=== PATIENT | male | born 1950 | race Two or more races ===

== ENCOUNTER 2022-05-21 14:43 | Outpatient (CLI) | payer MEDICARE, SELFPAY ==
[2022-05-21 19:09] LABS: Chloride* 104 mmol/L (96-114); Potassium* 4.3 mmol/L (3.6-5.1); Sodium* 142 mmol/L (135-149)
[2022-05-21 19:12] LABS: Blood Urea Nitrogen* 17 mg/dL (7-30); Carbon Dioxide* 28 mmol/L (20-32); Estimated Glomerular Filt Rate 81 ml/min
[2022-05-21 19:13] LABS: Calcium* 9.7 mg/dL (8.4-10.6); Glucose* 100 mg/dL (60-115)
== END 2022-05-21 14:44 | disposition home or self-care (01) ==
LOC: NFLDREF 14:44
PROVIDERS: PCP Family Medicine; Visit Provider Family Medicine
DX: Z01.818 Encounter for other preprocedural examination (principal)
CPT/HCPCS: 80048

== ENCOUNTER 2023-10-15 09:26 | Outpatient (CLI) | payer MEDICARE, SELFPAY ==
--- OUTSIDE RECORDS SUMMARY | 2023-10-15 09:29 | XMS_ITS | Clinical Summary ---
Author Organization [employer] Address [address], [place] [address] Care Team Providers Care Sander And Polisher Name Role Phone Delvis Altamirano MD Primary Care Provider [phone] Source Comments You are receiving this document as you are listed as the primary care provider,follow-up provider, or the patient has been referred to you for consultation.This is in compliance with the Medicare and[facility] E[facility] Incentive Program,which states Providers who transition their patient to another setting of careor provider of care or refers their patient to another provider of care shouldprovide summary care record for each transition of care or referral. [employer] [employer] Allergies No known active allergies Medications Medication Sig Dispensed Refills Start Date End Date Status lisinopril (ZESTRIL) 10 MG tablet Take 1 Tablet (10 mg) by mouth daily. Active Aspirin Buf,FfAwsy-LgNwuc-Ld O, 81 MG TABS Take by mouth. Active allopurinol (ZYLOPRIM) 100 MG tablet Take 2 Tablets by mouth daily. 180 Tablet 1 01/31/2021 Active predniSONE (DELTASONE) 20 MG tablet ONLY FOR A FLARE, TAKE 2 TABLETS ONE TIME DAILY FOR 5 DAYS, THEN 1 TABLET DAILY FOR 5 DAYS, THEN STOP- APPT. NEEDED FOR FURTHER REFILLS 30 Tablet 07/18/2021 Active LIPITOR 20 MG tablet Take 1 Tablet (20 mg) by mouth daily. 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 Pulse 63 05/24/2020 2:26 PM CHICKEN PICKER Temperature 36.4 ??C (97.5 ??F) 05/24/2020 2:26 PM CS T Respiratory Rate - - Oxygen Saturation - - Inhaled Oxygen Concentration - - Weight 89.4 kg (197 lb) 05/24/2020 2:26 PM CHICKEN PICKER Height - - Body Mass Index - - Plan of Treatment Upcoming Encounters Date Type Department Care Team (Late st Contact Info) Description 12/17/2023 8:20 AM CDT Appointment [place] [phone] [place] [address] [phone] Ligia Bhakta MD [address] [place] [id number] Health Maintenance Due Date Last Done Comments Colon Cancer Screening Plan Due 1950 Hep C Screening (Preventive Services) 1950 Medicare Welcome Visit 1950 Cholesterol 12/02/1986 Zoster/Shingles (1 of 2) 12/02/2001 Pneumococcal 65+ Yrs (1 - PCV) 12/02/2016 COVID-19 Vaccine ( season) 2022 05/21/2022, 02/22/2021, 06/23/2020, Additional history exists Influenza (Season Ended) 2023 02/21/2010 DTaP/Tdap/Td (3 - Tdap) 08/10/2031 08/09/2021, 05/26 HepA Aged Out No longer eligi ble based on patient's age to complete this topic HepB Aged Out No longer eligi ble based on patient's age to complete this topic Hib Aged Out No longer eligi ble based on patient's age to complete this topic IPV (Polio) Aged Out No longer eligi ble based on patient's age to complete this topic MCV4 Aged Out No longer eligi ble based on patient's age to complete this topic Care Teams Sander And Polisher Relationship Specialty Start Date End Date Delvis Altamirano MD [facility] [address] [place] [address] PCP - General Family Practice 05/18/20
== END 2023-10-15 09:27 | disposition home or self-care (01) ==
PROVIDERS: PCP Family Medicine; Visit Provider Family Medicine
DX: I10 Essential (primary) hypertension (principal); E78.00 Pure hypercholesterolemia, unspecified; Z13.0 Encounter for screening for diseases of the blood and blood-forming organs and certain disorders involving the immune mechanism
CPT/HCPCS: 80048; 80061

== ENCOUNTER 2023-11-18 11:38 | Inpatient (IN) | payer MEDICARE, SELFPAY ==
[2023-11-18] VITALS (23 sets, daily range): BP systolic 124–167; BP diastolic 83–96; PULSE 57–75; RESP 16–18; TEMP 36.2–36.4; O2SAT 96–100; BMI 25.7; BMI 26.4
--- NOTE | 2023-11-18 12:05 | CRLHL7_ITS ---
For Patients: As a result of the Century Cures Act, medical imaging exams and procedure reports are released immediately into your electronic medical record. You may view this report before your referring provider. If you have questions, please contact your health care provider. INDICATION: Chest pain. TECHNIQUE: Chest 2 views. COMPARISON: None. FINDINGS: Cardiovascular and mediastinum: Heart size is normal. Unremarkable mediastinum. Lungs and pleural spaces: Lungs are clear. No sign of infiltrate or mass. No sign of pleural effusion. No pneumothorax. Bones and soft tissues: No significant findings. IMPRESSION: No acute or significant findings. Dictated by Cierra Dunaway MD @ 11/18/2023 12:24:34 PM (Electronically Signed)
--- OUTSIDE RECORDS SUMMARY | 2023-11-18 12:12 | XMS_ITS | Clinical Summary ---
Author Organization [employer] Address [address], [place] [address] Care Team Providers Care Identity Management Consultant Name Role Phone Delvis Altamirano MD Primary Care Provider [phone] Source Comments You are receiving this document as you are listed as the primary care provider,follow-up provider, or the patient has been referred to you for consultation.This is in compliance with the Medicare and[facility] E[facility] Incentive Program,which states Providers who transition their patient to another setting of careor provider of care or refers their patient to another provider of care shouldprovide summary care record for each transition of care or referral. [employer] Allergies No known active allergies Medications Medication Sig Dispensed Refills Start Date End Date Status lisinopril (ZESTRIL) 10 MG tablet Take 1 Tablet (10 mg) by mouth daily. Active Aspirin Buf,CyIivm-CsEhea-Mj O, 81 MG TABS Take by mouth. [...] Comments Blood Pressure 160/93 05/24/2020 2:26 PM SURVEYING OR SPATIAL SCIENCE TECHNICIAN Pulse 63 05/24/2020 2:26 PM SURVEYING OR SPATIAL SCIENCE TECHNICIAN Temperature 36.4 ??C (97.5 ??F) 05/24/2020 2:26 PM CS T Respiratory Rate - - Oxygen Saturation - - Inhaled Oxygen Concentration - - Weight 89.4 kg (197 lb) 05/24/2020 2:26 PM SURVEYING OR SPATIAL SCIENCE TECHNICIAN Height - - Body Mass Index - - Plan of Treatment Upcoming Encounters Date Type Department Care Team (Late st Contact Info) Description 12/17/2023 8:20 AM CDT Appointment [place] [phone] [place] [address] [phone] Ligia Bhakta MD [address] [place] [phone] Health Maintenance Due Date Last Done Comments Colon Cancer Screening Plan Due 1950 Hep C Screening (Preventive Services) 1950 Medicare Welcome Visit 1950 Cholesterol 12/02/1986 Zoster/Shingles (1 of 2) 12/02/2001 Pneumococcal 65+ Yrs (1 - PCV) 12/02/2016 COVID-19 Vaccine ( season) 2022 05/21/2022, 02/22/2021, 06/23/2020, Additional history exists Influenza (#1) 2023 02/21/2010 DTaP/Tdap/Td (3 - Tdap) 08/10/2031 [...] age to complete this topic Care Teams Identity Management Consultant Relationship Specialty Start Date End Date Delvsi Altamirano MD [facility] [address] [place] [address] PCP - General Family Practice 05/18/20
--- NOTE | 2023-11-18 12:35 | ED_ITS ---
HPI - General Adult General Date Seen: 11/18/23 Chief complaint: Dizziness/Vertigo Stated complaint: chest tightness/SOB Time Seen by Provider: 11/18/23 11:48 Source: patient Mode of arrival: ambulatory Limitations: no limitations History of Present Illness HPI narrative: Patient is a 72-year-old male with history of gout presenting to the emergency department for lightheadedness, mild shortness of breath, chest pain that has been going on for the past 2 weeks. He initially noticed it while he was rashing a game. Symptoms seem to come and go and are typically there when he is exerting himself. Symptoms recur subside when he is at rest. He has no history of cardiac issues. Denies any history of blood clots. States he is currently feeling asymptomatic. Will have some lightheadedness if he stands up too fast the symptoms then seemed to quickly resolved. It was concerned because symptoms keep coming back whenever he does exert himself. Denies abdominal pain, nausea/vomiting, vision changes, dysuria, diarrhea, constipation, , weakness. Does have occasional headaches over the past couple weeks but is currently not having any headaches. States he feels like he is drinking plenty of fluids but does admit he has been outside a lot and dehydration could be part of his problem. No other concerns noted at this time. Related Data Home Medications ?Medication ?Instructions ?Recorded ?Confirmed aspirin 81 mg tablet,delayed 81 mg PO DAILY 01/02/22 11/18/23 release lisinopril 5 mg tablet 5 mg PO DAILY 11/18/23 11/18/23 Previous Rx's ?Medication ?Instructions ?Recorded allopurinol 300 mg tablet 300 mg PO DAILY #90 tabs 10/15/23 atorvastatin 20 mg tablet 20 mg PO QPM #90 tabs 10/15/23 Allergies Allergy/AdvReac Type Severity Reaction Status Date / Time No Known Allergies Allergy Unknown Verified 10/15/23 08:47 Review of Systems Status of ROS: Reports: 10 or more systems reviewed and unremarkable except as noted in History and below PFSH [facility] Medical History Rotator cuff injury ?S46.009A - Unspecified injury of muscle(s) and tendon(s) of the rotator cuff of unspecified shoulder, initial encounter (ICD-10) Surgical History S/P arthroscopy of shoulder ?Z98.890 - Other specified postprocedural states (ICD-10) Status post vasectomy (12/14/08) ?Z98.52 - Vasectomy status (ICD-10) History of oral surgery (12/14/08) ?Z98.890 - Other specified postprocedural states (ICD-10) History of arthroscopy of left shoulder ?Z98.890 - Other specified postprocedural states (ICD-10) Family History Other Brain cancer Social History Smoking Status: Former smoker Do you use any of these nicotine containing products: None How often do you have a drink containing alcohol: 4 or more times a week How many standard drinks containing alcohol do you have on a typical day: 1 or 2 AUDIT-C Alcohol total score: 4 Non-prescribed substance use: denies use Little interest or pleasure in doing things: not at all Feeling down, depressed, or hopeless: not at all Exam Narrative: Exam Narrative: Patient is a 72-year-old male presenting to emergency department for multiple complaints. Lightheadedness might be related to dehydration and fluids will be given. All his symptoms could also be from viral infection and COVID/flu/RSV ordered. D-dimer order to look for signs of a PE. Will also order CBC, BMP, troponin, magnesium, EKG. Chest x-ray ordered Const: Vital Signs, click to edit/add: Vital Signs - 24 hr 11/18/23 11:41 11/18/23 13:51 11/18/23 14:00 Temperature 97.6 F Pulse Rate 64 62 Pulse Rate [Pulse Oximeter] 75 Respiratory Rate 16 Blood Pressure Blood Pressure [Ri ght Upper Arm] 159/89 H Pulse Oximetry 96 96 99 Oxygen Delivery Me thod Room Air 11/18/23 14:02 11/18/23 14:24 11/18/23 14:31 Temperature Pulse Rate 63 60 57 L Pulse Rate [Pulse Oximeter] Respiratory Rate Blood Pressure 146/90 H 148/93 H Blood Pressure [Ri ght Upper Arm] Pulse Oximetry 98 97 98 Oxygen Delivery Me thod 11/18/23 15:07 Temperature Pulse Rate Pulse Rate [Pulse Oximeter] Respiratory Rate 18 Blood Pressure Blood Pressure [Ri ght Upper Arm] Pulse Oximetry Oxygen Delivery Me thod Course Vital Signs Vital signs: Initial Vital Signs Temperature 97.6 F 11/18/23 11:41 Temperature Source Temporal Artery Scan 11/18/23 11:41 Pulse Rate 75 11/18/23 11:41 Respiratory Rate 16 11/18/23 11:41 Blood Pressure 159/89 H 11/18/23 11:41 Blood Pressure Mean 112 H 11/18/23 11:41 Pulse Oximetry 96 11/18/23 11:41 Oxygen Delivery Method Room Air 11/18/23 11:41 Vital Signs Temperature 97.6 F 11/18/23 11:41 Pulse Rate 75 11/18/23 11:41 Respiratory Rate 16 11/18/23 11:41 Blood Pressure 159/89 H 11/18/23 11:41 Pulse Oximetry 96 11/18/23 11:41 Oxygen Delivery Method Room Air 11/18/23 11:41 Temperature 97.6 F 11/18/23 11:41 Pulse Rate 57 L 11/18/23 14:31 Respiratory Rate 18 11/18/23 15:07 Blood Pressure 148/93 H 11/18/23 14:31 Pulse Oximetry 98 11/18/23 14:31 Oxygen Delivery Method Room Air 11/18/23 11:41 Medications Administered Medications: Discontinued Medications Generic Name Dose Route Start Last Admin Trade Name Freq PRN Reason Stop Dose Admin Lactated Ringer's 1,000 mls @ 1,000 mls/hr 11/18/23 12:05 11/18/23 15:03 Lactated Ringers 1000 Ml IV 11/18/23 13:04 Infused .Q1H ONE Infusion Medical Decision Making MDM Narrative Medical decision making narrative: Patient is a 72-year-old male presenting to the emergency department for shortness of breath. He is asymptomatic at this time. Symptoms seemed only occur with activity. Differential includes coronary artery disease, pneumonia, pneumothorax, pulmonary embolism. Will do a D-dimer, chest x-ray, COVID/flu/RSV, EKG, troponin, CBC, magnesium, BMP. COVID/flu/RSV is negative. CBC and BMP shows no concerning abnormalities. D- dimer within normal limits in PE is unlikely. Reviewing the EKG I see no signs of any concerning abnormalities. Point of care troponin was elevated at 0.13 so a troponin I was ordered. This was elevated at 0.16. Repeat troponin was done and was elevated at 0.18. He continues to be asymptomatic at this time with normal vital signs. Repeat EKG showed no concerning findings. We will page [facility]. I spoke to their on-call provider who recommended starting heparin but states we can keep him in our hospital and to order a stress echo tomorrow. I wrote out this order using our stress echo order sheet. I spoke to Dr. Salazar who accepted for admission Lab Data Labs: Lab Results 11/18/23 11/18/23 11/18/23 Range/Units 12:31 14:23 14:35 WBC 6.40 (4.50-11.00) K/uL RBC 4.65 (4.30-5.90) m/uL Hgb 14.4 (13.5-17.5) gm/dL Hct 43.9 (37.0-53.0) % MCV 94 (80-100) fL MCH 31 (26-34) pg MCHC 33 (32-36) gm/dL RDW Coeff of Cassandra 13.8 (11.5-15.5) % Plt Count 214 (140-440) K/uL Neut % (Auto) 67.7 (42.0-72.0) % Lymph % (Auto) 22.8 (20-44) % [place] % (Auto) 7.2 (0.0-11.0) % Eos % (Auto) 1.6 (0.0-7.0) % Baso % (Auto) 0.5 (0.0-3.0) % Neut # (Auto) 4.34 (1.7-7.0) K/uL Lymph # (Auto) 1.46 (0.90-2.90) K/uL [place] # (Auto) 0.50 (0.00-0.90) K/UL Eos # (Auto) 0.10 (0.00-0.50) K/uL Baso # (Auto) 0.03 (0.00-0.30) K/uL Abs Immat Gran (auto) 0.01 (0.00-0.30) K/uL Imm/Tot Granulo (auto) 0.2 % D-Dimer Quant (PE/DVT) 0.31 (0.00-0.50) ug/ml Sodium 134 L (135-149) mmol/L Potassium 4.0 (3.6-5.1) mmol/L Chloride 102 (96-114) mmol/L Carbon Dioxide 23 (20-32) mmol/L Anion Gap 9 (7-15) mEq/L BUN 18 (7-30) mg/dL Creatinine 1.0 (0.5-1.5) mg/dL Estimated Creat Clear 69.96 Estimated GFR 80 ml/min Glucose 97 (60-115) mg/dL Calcium 9.2 (8.4-10.6) mg/dL Magnesium 1.9 (1.5-2.6) mg/dL Troponin I 0.16 H* 0.18 H* (0.01-0.04) ng/mL SARS-CoV-2 (PCR) Negative SARS-CoV-2 (Negative) Influenza Type A (PCR) Negative PCR FLU A (Negative) Influenza Type B (PCR) Negative PCR FLU B (Negative) RSV (PCR) Negative PCR RSV (Negative) POC Troponin I 0.13 H 0.14 H (0.01-0.04) ng/ml Imaging Data Chest x-ray: Attestation: I have reviewed the pertinent imaging results. Radiologist's impression: No acute or significant findings. Dictated by Cierra Dunaway MD @ 11/18/2023 12:24:34 PM ECG Data Attestation: I personally reviewed and interpreted this ECG as follows: Prior ECG tracings: not available for review Interpretation: EKG at 11:58 normal sinus rhythm with a rate of 68 beats per minute, normal intervals, normal axis, no ST or T-wave abnormalities. Repeat EKG at 14:01 sinus bradycardia the rate 56 beats per minute, normal intervals, normal axis, no ST or T-wave abnormalities Discharge Plan Discharge Clinical Impression: Angina pectoris Patient Disposition: Admitted As Observation Condition: Stable
[2023-11-18 12:42] LABS: Basophils Absolute Auto 0.03 K/uL (0.00-0.30); Basophils Percent Auto 0.5 % (0.0-3.0); Eosinophils Percent Auto 1.6 % (0.0-7.0); Hematocrit 43.9 % (37.0-53.0); Hemoglobin* 14.4 gm/dL (13.5-17.5); Immature Granulocytes Abs Auto 0.01 K/uL (0.00-0.30); Immature Granulocytes Pct Auto 0.2 %; Lymphocytes Absolute Auto 1.46 K/uL (0.90-2.90); Lymphocytes Percent Auto 22.8 % (20-44); Mean Corpuscular HGB Conc 33 gm/dL (32-36); Mean Corpuscular Hemoglobin 31 pg (26-34); Mean Corpuscular Volume 94 fL (80-100); Monocytes Percent Auto 7.2 % (0.0-11.0); Neutrophils Absolute Auto 4.34 K/uL (1.7-7.0); Neutrophils Percent Auto 67.7 % (42.0-72.0); Platelet Count* 214 K/uL (140-440); RDW Coefficient of Variation % 13.8 % (11.5-15.5); Red Blood Count 4.65 m/uL (4.30-5.90)
[2023-11-18 12:50] LABS: Slide Review Reflex No
[2023-11-18 12:55] LABS: Chloride* 102 mmol/L (96-114); Sodium* 134 mmol/L (135-149)
[2023-11-18 12:58] LABS: Anion Gap 9 mEq/L (7-15); Carbon Dioxide* 23 mmol/L (20-32); Est. Creatinine Clearance* 69.96; Estimated Glomerular Filt Rate 80 ml/min
[2023-11-18 12:59] LABS: Blood Urea Nitrogen* 18 mg/dL (7-30); Calcium* 9.2 mg/dL (8.4-10.6); Glucose* 97 mg/dL (60-115); Magnesium* 1.9 mg/dL (1.5-2.6)
[2023-11-18] MEDS: LACTATED RINGERS 1000 ML 1,000 ML IV (13:01)
[2023-11-18 13:20] LABS: PCR FLU A Negative PCR FLU A (Negative); PCR FLU B Negative PCR FLU B (Negative); PCR RSV Negative PCR RSV (Negative); SARS PCR* Negative SARS-CoV-2 (Negative)
[2023-11-18 13:56] LABS: Troponin I* 0.16 ng/mL (0.01-0.04)
[2023-11-18 14:00] LABS: D Dimer Quantitative* 0.31 ug/ml (0.00-0.50)
[2023-11-18 14:10] LABS: Troponin, Point-of-Care* 0.13 ng/ml (0.01-0.04)
[2023-11-18 14:37] LABS: Troponin, Point-of-Care* 0.14 ng/ml (0.01-0.04)
[2023-11-18 15:12] LABS: Troponin I* 0.18 ng/mL (0.01-0.04)
[2023-11-18] MEDS: HEPARIN 5,000 UNIT/0.5 ML INJ 4000 UNIT IVP (16:09)
[2023-11-18] MEDS: HEPARIN 25,000 UNIT/500 ML BAG 19 UNIT IV (16:12)
[2023-11-18 16:26] LABS: INR 0.94 (0.91-1.10); Prothrombin Time 13.1 Seconds
--- NOTE | 2023-11-18 16:32 | PM.IMHP1 ---
Hospitalist- H&P: HPI History of Present Illness Date Seen: 11/18/23 Chief complaint: chest tightness/SOB Narrative: Oleg Waterman is a 72 year old male with hypertension and hyperlipidemia admitted through the emergency department with a 2 week history of exertional dyspnea and chest tightness. 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 He noted that this got better when he rested. In the past 2 weeks he has not done similar vigorous activity but does note that he has dyspnea with normal walking. No previous history of heart disease. No previous episodes of exertional dyspnea or chest tightness prior to 2 weeks ago. He does have hyperlipidemia for which he takes atorvastatin 20 mg and hypertension for which he takes lisinopril 5 mg he is also on aspirin 81 mg daily chronically. He does not smoke. His mother and brother both had heart disease. He has not had recent illness with cough, cold, fever. No previous personal family history of DVT or VTE. No history of bleeding disorder. Review of Systems Narrative: Reports feeling well other than his exertional symptoms outlined above [facility] Medical History (Updated 11/18/23 @ 16:43 by Jai Salazar MD) NSTEMI (non-ST elevated myocardial infarction) ?I21.4 - Non-ST elevation (NSTEMI) myocardial infarction (ICD-10) Rotator cuff injury ?S46.009A - Unspecified injury of muscle(s) and tendon(s) of the rotator cuff of unspecified shoulder, initial encounter (ICD-10) Surgical History S/P arthroscopy of shoulder ?Z98.890 - Other specified postprocedural states (ICD-10) Status post vasectomy (12/14/08) ?Z98.52 - Vasectomy status (ICD-10) History of oral surgery (12/14/08) ?Z98.890 - Other specified postprocedural states (ICD-10) History of arthroscopy of left shoulder ?Z98.890 - Other specified postprocedural states (ICD-10) Family History (Updated 11/18/23 @ 16:37 by Jai Salazar MD) Brother Coronary artery disease Other Brain cancer Heart disease Social History (Updated 11/18/23 @ 16:38 by Jai Salazar MD) Narrative: 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 Three grown children. 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 Code status is full. Former smoker. Typically drinks 2 drinks per day Smoking Status: Former smoker Do you use any of these nicotine containing products: None How often do you have a drink containing alcohol: 4 or more times a week How many standard drinks containing alcohol do you have on a typical day: 1 or 2 AUDIT-C Alcohol total score: 4 Non-prescribed substance use: denies use Little interest or pleasure in doing things: not at all Feeling down, depressed, or hopeless: not at all Meds Home Medications and Allergies Home Medications ?Medication ?Instructions ?Recorded ?Confirmed ?Type aspirin 81 mg tablet,delayed 81 mg PO DAILY 01/02/22 11/18/23 History release lisinopril 5 mg tablet 5 mg PO DAILY 11/18/23 11/18/23 History Allergies Allergy/AdvReac Type Severity Reaction Status Date / Time No Known Allergies Allergy Unknown Verified 10/15/23 08:47 Exam Narrative: Exam Narrative: He is alert and appears in no distress. He gives his own history. Eyes normal. Oropharynx normal. Neck is supple without mass or adenopathy. No jugular venous distension. Respirations are clear to auscultation. Breathing is unlabored. Cardiovascular: S1, S2, regular rate and rhythm. No murmur gallop or rub. Abdomen: Bowel sounds active. Abdomen is soft without tenderness or mass. Extremities without edema. Good peripheral pulses. No rash Const: Vital Signs, click to edit/add: Vital Signs - 24 hr 11/18/23 11:41 11/18/23 13:51 11/18/23 14:00 Temperature 97.6 F Pulse Rate 64 62 Pulse Rate [Pulse Oximeter] 75 Respiratory Rate 16 Blood Pressure Blood Pressure [Ri ght Upper Arm] 159/89 H Pulse Oximetry 96 96 99 Oxygen Delivery Me thod Room Air 11/18/23 14:02 11/18/23 14:24 11/18/23 14:31 Temperature Pulse Rate 63 60 57 L Pulse Rate [Pulse Oximeter] Respiratory Rate Blood Pressure 146/90 H 148/93 H Blood Pressure [Ri ght Upper Arm] Pulse Oximetry 98 97 98 Oxygen Delivery Me thod 11/18/23 14:34 11/18/23 14:45 11/18/23 15:00 Temperature Pulse Rate 60 57 L 61 Pulse Rate [Pulse Oximeter] Respiratory Rate Blood Pressure Blood Pressure [Ri ght Upper Arm] Pulse Oximetry 99 98 99 Oxygen Delivery Me thod 11/18/23 15:02 11/18/23 15:07 11/18/23 15:15 Temperature Pulse Rate 61 62 Pulse Rate [Pulse Oximeter] Respiratory Rate 18 Blood Pressure 148/89 H Blood Pressure [Ri ght Upper Arm] Pulse Oximetry 97 97 Oxygen Delivery Ky thod 11/18/23 15:30 11/18/23 15:31 11/18/23 15:45 Temperature Pulse Rate 59 L 57 L 63 Pulse Rate [Pulse Oximeter] Respiratory Rate Blood Pressure 157/89 H Blood Pressure [Ri ght Upper Arm] Pulse Oximetry 100 100 99 Oxygen Delivery Ky thod 11/18/23 16:00 11/18/23 16:02 11/18/23 16:15 Temperature Pulse Rate 62 61 63 Pulse Rate [Pulse Oximeter] Respiratory Rate Blood Pressure 164/94 H Blood Pressure [Ri ght Upper Arm] Pulse Oximetry 99 99 99 Oxygen Delivery Me thod Documenting provider has reviewed patient's vital signs: yes Hospitalist - H&P: Result Labs Labs: Short CBC 11/18/23 Range/Units 12:31 WBC 6.40 (4.50-11.00) K/uL Hgb 14.4 (13.5-17.5) gm/dL Hct 43.9 (37.0-53.0) % Plt Count 214 (140-440) K/uL BMP 11/18/23 12:31 Sodium 134 L Potassium 4.0 Chloride 102 Carbon Dioxide 23 BUN 18 Creatinine 1.0 Glucose 97 Calcium 9.2 Cardiac Enzymes 11/18/23 11/18/23 Range/Units 12:31 14:35 Troponin I 0.16 H* 0.18 H* (0.01-0.04) ng/mL ECG Attestation: I personally reviewed and interpreted this ECG as follows: (Normal electrocardiogram: Normal sinus rhythm of 68. no ST-T changes.) ECG interpretation date: 11/18/23 Imaging Chest x-ray: Attestation: I have reviewed the pertinent imaging results. (Normal chest x-ray) Assessment and Plan Assessment and plan (1) NSTEMI (non-ST elevated myocardial infarction): Problem comment: Exertional dyspnea and chest heaviness associated with troponin elevation. Status: Acute (2) Angina pectoris: Problem comment: Fairly typical presentation of angina Status: Acute (3) Hypertension: Status: Acute (4) Hyperlipidemia: Problem comment: 10/15/2019 for lipid profile: Total cholesterol 219, triglycerides 253, LDL 107, HDL 61 Status: Acute Plan 72-year-old male with no previous history of coronary disease presents with a relatively typical history of angina for the last 2 weeks but also associated with elevated troponins indicating non STEMI. Emergency room physician spoke with Cardiology. They recommended evaluation in our hospital with cardiac monitoring, heparin and stress testing. Transfer for coronary angiogram pending clinical course. Total Time Spent Total Time Spent: Total time spent today is 60 minutes in evaluation and management
[2023-11-18 16:36] LABS: Partial Thromboplastin Time* 28 Seconds (23-33)
--- NOTE | 2023-11-18 19:29 | PC.NURSE ---
Pt arrived to floor for ED at 1630. Pt alert and oriented. Pt had no complaints of pain. Pt up independently in room. Pt started on Heparin drip in ED next PTT draw at 2200. Pt has stress test tomorrow at 1600- no caffeine for 24 hours and no beta blockers. Pt lives at home with in [place].
[2023-11-18] MEDS: ATORVASTATIN 10 MG TABLET 20 MG PO (20:42)
[2023-11-18 23:12] LABS: Partial Thromboplastin Time* 61 Seconds (23-33)
[2023-11-19 04:16] LABS: Basophils Absolute Auto 0.05 K/uL (0.00-0.30); Basophils Percent Auto 0.7 % (0.0-3.0); Eosinophils Absolute Auto 0.26 K/uL (0.00-0.50); Eosinophils Percent Auto 3.6 % (0.0-7.0); Hematocrit 43.3 % (37.0-53.0); Hemoglobin* 14.3 gm/dL (13.5-17.5); Immature Granulocytes Abs Auto 0.01 K/uL (0.00-0.30); Immature Granulocytes Pct Auto 0.1 %; Lymphocytes Absolute Auto 2.28 K/uL (0.90-2.90); Lymphocytes Percent Auto 31.8 % (20-44); Mean Corpuscular HGB Conc 33 gm/dL (32-36); Mean Corpuscular Hemoglobin 31 pg (26-34); Mean Corpuscular Volume 93 fL (80-100); Monocytes Percent Auto 7.1 % (0.0-11.0); Neutrophils Absolute Auto 4.07 K/uL (1.7-7.0); Neutrophils Percent Auto 56.7 % (42.0-72.0); Platelet Count* 210 K/uL (140-440); RDW Coefficient of Variation % 13.8 % (11.5-15.5); Red Blood Count 4.64 m/uL (4.30-5.90); White Blood Count* 7.18 K/uL (4.50-11.00)
[2023-11-19 04:17] LABS: Slide Review Reflex No
[2023-11-19 04:20] VITALS: BP 132/88; PULSE 71; RESP 16; TEMP 36.2; O2SAT 97
[2023-11-19 04:33] LABS: Partial Thromboplastin Time* 56 Seconds (23-33)
[2023-11-19 04:35] LABS: INR 1.01 (0.91-1.10); Prothrombin Time 13.9 Seconds
[2023-11-19 04:45] LABS: Troponin I* 0.12 ng/mL (0.01-0.04)
--- NOTE | 2023-11-19 06:49 | PC.NURSE ---
Pt is alert and oriented x3. Afebrile. Pt denies pain, chest pain, SOB and N/V. Pt is up ad kelly in room, voiding and tolerating regular diet. Heparin rate?at 950 unit/hr at 19 mls/hr, no changes made during shift [id number] per protocol. Pt's troponin was 0.12 ng/ml treading downward from 0.18 ng/ml yesterday (11/18/23) afternoon, Shavon PHAN called updated Rafal SAENZ, no new orders, continuing plan of care. ?
[2023-11-19 07:00] VITALS: BP 127/84; PULSE 60; PULSE 86; RESP 20; TEMP 36.3; O2SAT 97
[2023-11-19] MEDS: lisinopriL 5 MG TABLET PO (08:31)
[2023-11-19] MEDS: ASPIRIN 81 MG TABLET EC PO (08:31)
[2023-11-19] MEDS: SODIUM CHLORIDE 0.9 % (FLUSH) 10 ML SYRINGE 5 ML IVF ×2 (08:31→21:34)
[2023-11-19] MEDS: allopurinoL 300 MG TABLET PO (08:31)
[2023-11-19 10:28] VITALS: BP 114/81; PULSE 91; RESP 20; O2SAT 97
[2023-11-19 10:31] LABS: Partial Thromboplastin Time* 47 Seconds (23-33)
--- NOTE | 2023-11-19 13:23 | PC.NURSE ---
End of Shift Note: Patient has had an uneventful day so far this shift. He has been up and ambulated around and did not develop any chest pain or shortness of breath. Has been up independently in his room. Currently awaiting a stress echo test. Will continue to monitor until next shift arrives.
--- NOTE | 2023-11-19 14:56 | P.IMPN_ITS ---
Progress Note: A&P Assessment and plan (1) NSTEMI (non-ST elevated myocardial infarction): Problem details: Exertional dyspnea and chest heaviness associated with troponin elevation. Status: Acute (2) Angina pectoris: Problem details: Fairly typical presentation of angina Status: Acute (3) Hypertension: Status: Chronic (4) Hyperlipidemia: Problem details: 10/15/2019 for lipid profile: Total cholesterol 219, triglycerides 253, LDL 107, HDL 61 Status: Chronic Plan - On cardiac monitoring, IV heparin. Stress test scheduled for this afternoon at 4pm. Subjective Time Seen by Provider: 08:00 Date Seen: 11/19/23 Interval history: Avelino feels well today. Denies CP or SOB. He had questions about plan. Ambulated this am without cardiac symptoms. Exam Narrative: Exam Narrative: General: No acute distress. Awake, alert, oriented x3. No pallor. No jaundice. Cardiovascular: Regular rate and rhythm. No murmurs, gallops, or rubs. Respiratory: Clear to auscultation bilaterally. No wheezes or crackles. Extremities: No pedal edema. Const: Vital Signs, click to edit/add: Vital Signs - 24 hr 11/18/23 15:00 11/18/23 15:02 11/18/23 15:07 Temperature Pulse Rate 61 61 Pulse Rate [Pulse Oximeter] Respiratory Rate 18 Blood Pressure 148/89 H Blood Pressure [Le ft Arm] Blood Pressure [Ri ght Arm] Pulse Oximetry 99 97 [facility] 11/18/23 15:15 11/18/23 15:30 11/18/23 15:31 Temperature Pulse Rate 62 59 L 57 L Pulse Rate [Pulse Oximeter] Respiratory Rate Blood Pressure 157/89 H Blood Pressure [Le ft Arm] Blood Pressure [Ri ght Arm] Pulse Oximetry 97 100 100 Oxygen Delivery Sc thod 11/18/23 15:45 11/18/23 16:00 11/18/23 16:02 Temperature Pulse Rate 63 62 61 Pulse Rate [Pulse Oximeter] Respiratory Rate Blood Pressure 164/94 H Blood Pressure [Le ft Arm] Blood Pressure [Ri ght Arm] Pulse Oximetry 99 99 99 [facility] 11/18/23 16:15 11/18/23 16:30 11/18/23 16:52 Temperature 97.2 F L Pulse Rate 63 64 Pulse Rate [Pulse Oximeter] 61 Respiratory Rate 18 Blood Pressure Blood Pressure [Le ft Arm] Blood Pressure [Ri ght Arm] 167/93 H Pulse Oximetry 99 98 Oxygen Delivery Me thod Room Air 11/18/23 17:22 11/18/23 19:00 11/18/23 23:37 Temperature 97.4 F L 97.3 F L Pulse Rate Pulse Rate [Pulse Oximeter] 65 Respiratory Rate 18 16 Blood Pressure Blood Pressure [Le ft Arm] Blood Pressure [Ri ght Arm] 158/83 H 124/96 H Pulse Oximetry 98 96 96 Oxygen Delivery Me thod Room Air Room Air 11/18/23 23:37 11/19/23 04:20 11/19/23 07:00 Temperature 97.2 F L 97.4 F L Pulse Rate 58 L Pulse Rate [Pulse Oximeter] 71 60 Respiratory Rate 16 20 Blood Pressure Blood Pressure [Le ft Arm] 127/84 Blood Pressure [Ri ght Arm] 132/88 Pulse Oximetry 97 97 Oxygen Delivery Sc thod Room Air Room Air 11/19/23 07:00 11/19/23 07:00 11/19/23 10:28 Temperature Pulse Rate 86 Pulse Rate [Pulse Oximeter] 60 91 Respiratory Rate 20 20 Blood Pressure Blood Pressure [Le ft Arm] Blood Pressure [Ri ght Arm] 114/81 Pulse Oximetry 97 Oxygen Delivery Sc thod Room Air Labs Labs: Laboratory Results - last 24 hr 11/18/23 11/18/23 11/18/23 14:35 16:15 22:34 WBC RBC Hgb Hct MCV MCH MCHC RDW Coeff of Cassandra Plt Count Neut % (Auto) Lymph % (Auto) Hunt % (Auto) Eos % (Auto) Baso % (Auto) Neut # (Auto) Lymph # (Auto) Hunt # (Auto) Eos # (Auto) Baso # (Auto) Abs Immat Gran (auto) Imm/Tot Granulo (auto) INR 0.94 APTT 28 61 H Troponin I 0.18 H* 11/19/23 11/19/23 04:10 10:07 WBC 7.18 RBC 4.64 Hgb 14.3 Hct 43.3 MCV 93 MCH 31 MCHC 33 RDW Coeff of Cassandra 13.8 Plt Count 210 Neut % (Auto) 56.7 Lymph % (Auto) 31.8 Hunt % (Auto) 7.1 Eos % (Auto) 3.6 Baso % (Auto) 0.7 Neut # (Auto) 4.07 Lymph # (Auto) 2.28 Hunt # (Auto) 0.50 Eos # (Auto) 0.26 Baso # (Auto) 0.05 Abs Immat Gran (auto) 0.01 Imm/Tot Granulo (auto) 0.1 INR 1.01 APTT 56 H 47 H Troponin I 0.12 H*
[2023-11-19 15:00] VITALS: BP 128/84; PULSE 77; RESP 18; RESP 20; TEMP 36.6; O2SAT 98
--- NOTE | 2023-11-19 16:37 | W.PM.STED ---
Stress Test Note Date Date of test: 11/19/23 Providers Referring provider: Jai Salazar Primary care provider: Mateus Altamirano Stress test physician: Leodan Fonseca Stress Test Note Stress test ordered: Stress Echo Indication for test: chest pain, elevated troponin Results discussion: Patient is a very nice 72-year-old gentleman who was admitted yesterday for elevated troponins, his troponins of actually decreased since he has been admitted. He is currently pain-free, and has been since admission. His history is over the past couple weeks his episodes this pain with exercise and lessening exertion. Informed consent is obtained after risks benefits side effects a test, pretest EKG shows a ventricular rate of 77 his rhythm is sinus, blood pressure 144 on 88. No acute ST wave changes are noted. During this test he exercised for a total of 6 minutes 30 seconds, achieved a metabolic equivalent of 7.7 Mets with a maximum heart rate of 122 which is 96% of the maximum, his maximum blood pressure is 168/102. He developed chest pain at approximately the 6 minute time frame. That resolved during recovery. He described as pressure sensation. View of his tracing shows some ST wave depression noted inferiorly laterally. This improved during recovery. Preliminary echo images reviewed with the tech show lateral wall hypokinesis. Impression: Positive stress test both objectively and subjectively described above. Follow up suggested: Above information was relayed to inpatient hospital team, Dr. Salazar. Patient was pain-free when brought back to medical surgery unit.
--- NOTE | 2023-11-19 17:03 | PM.DS1 ---
DS: Providers Provider Date Seen: 11/19/23 Date of admission: 11/18/23 16:28 Primary care physician: Mateus Altamirano MD Admitting Clinician: Jai Salazar MD Attending Physician on discharge: Jai Salazar MD Date of Discharge: 11/19/23 DS: Diagnosis Discharge Diagnosis (1) NSTEMI (non-ST elevated myocardial infarction): Status: Acute Problem details: Exertional dyspnea and chest heaviness associated with troponin elevation. (2) Angina pectoris: Status: Acute Problem details: Fairly typical presentation of angina (3) Hypertension: Status: Chronic (4) Hyperlipidemia: Status: Chronic Problem details: 10/15/2019 for lipid profile: Total cholesterol 219, triglycerides 253, LDL 107, HDL 61 DS: Summary Hospital Course Hospital Course: 72-year-old male with no previous cardiac history admitted to the hospital with a 2 week history of exertional chest pain and dyspnea. 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 He also had unusual exertional dyspnea. When he would rest his symptoms would resolve. Since then he has not done any more running but he notes with his normal walking he feels unusual dyspnea. He he was advised to come to the emergency room where he was found to have elevated but stable troponins and no EKG changes. He is admitted the hospital overnight on heparin and remained asymptomatic. This afternoon he underwent stress echo testing. At about 6-1/2 minutes he developed chest pain. Preliminary report from the echocardiogram is positive for ischemic changes. I discussed plan of care with the patient. He is requesting invasive evaluation and treatment with coronary angiogram. I spoke with Cardiology at [facility] and he is accepted there for ongoing cardiac care. Time Spent with Patient Time attestation: Total time spent providing and/or coordinating discharge services: Time spent: Greater than 30 minutes Exam Narrative: Exam Narrative: Const: Vital Signs, click to edit/add: Vital Signs - 24 hr 11/18/23 17:22 11/18/23 19:00 11/18/23 23:37 Temperature 97.4 F L 97.3 F L Pulse Rate Pulse Rate [Pulse Oximeter] 65 Respiratory Rate 18 16 Blood Pressure [Le ft Arm] Blood Pressure [Ri ght Arm] 158/83 H 124/96 H Pulse Oximetry 98 96 96 Oxygen Delivery Me thod Room Air Room Air 11/18/23 23:37 11/19/23 04:20 11/19/23 07:00 Temperature 97.2 F L 97.4 F L Pulse Rate 58 L Pulse Rate [Pulse Oximeter] 71 60 Respiratory Rate 16 20 Blood Pressure [Le ft Arm] 127/84 Blood Pressure [Ri ght Arm] 132/88 Pulse Oximetry 97 97 Oxygen Delivery Me thod Room Air Room Air 11/19/23 07:00 11/19/23 07:00 11/19/23 10:28 Temperature Pulse Rate 86 Pulse Rate [Pulse Oximeter] 60 91 Respiratory Rate 20 20 Blood Pressure [Le ft Arm] Blood Pressure [Ri ght Arm] 114/81 Pulse Oximetry 97 Oxygen Delivery Me thod Room Air 11/19/23 15:00 11/19/23 15:00 Temperature 97.8 F Pulse Rate Pulse Rate [Pulse Oximeter] 77 77 Respiratory Rate 20 18 Blood Pressure [Le ft Arm] 128/84 Blood Pressure [Ri ght Arm] Pulse Oximetry 98 Oxygen Delivery Me thod Room Air DS: Data Data Completed and Pending Labs on day of discharge: Labs from last 24 hours 11/19/23 11/19/23 11/18/23 10:07 04:10 22:34 WBC 7.18 RBC 4.64 Hgb 14.3 Hct 43.3 MCV 93 MCH 31 MCHC 33 RDW Coeff of Cassandra 13.8 Plt Count 210 Neut % (Auto) 56.7 Lymph % (Auto) 31.8 [place] % (Auto) 7.1 Eos % (Auto) 3.6 Baso % (Auto) 0.7 Neut # (Auto) 4.07 Lymph # (Auto) 2.28 [place] # (Auto) 0.50 Eos # (Auto) 0.26 Baso # (Auto) 0.05 Abs Immat Gran (auto) 0.01 Imm/Tot Granulo (auto) 0.1 INR 1.01 APTT 47 H 56 H 61 H Troponin I 0.12 H* 11/18/23 16:15 WBC RBC Hgb Hct MCV MCH MCHC RDW Coeff of Cassandra Plt Count Neut % (Auto) Lymph % (Auto) [place] % (Auto) Eos % (Auto) Baso % (Auto) Neut # (Auto) Lymph # (Auto) [place] # (Auto) Eos # (Auto) Baso # (Auto) Abs Immat Gran (auto) Imm/Tot Granulo (auto) INR 0.94 APTT 28 Troponin I Discharge Plan Discharge Disposition: [facility] Date of Admission: 11/18/23 16:28 Attending Physician on Admission: Jai Salazar Attending Provider on Discharge: Jai Salazar Primary Care Provider: Mateus Altamirano Condition: Stable Discharge Medications: No Action aspirin 81 mg tablet,delayed release (DR/EC) 81 mg PO DAILY allopurinol 300 mg tablet 300 mg PO DAILY Qty: 90 3RF atorvastatin 20 mg tablet 20 mg PO QPM Qty: 90 3RF lisinopril 5 mg tablet 5 mg PO DAILY Discharge Orders: Transfer of Care to Other Hospital (ORDER); Ordered 11/19/23 Ordered By: Jai Salazar Follow Up Appointments: Mateus Altamirano MD [Primary Care Provider] - Hospital Course: 72-year-old male with no previous cardiac history admitted to the hospital with a 2 week history of exertional chest pain and dyspnea. 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 He also had unusual exertional dyspnea. When he would rest his symptoms would resolve. Since then he has not done any more running but he notes with his normal walking he feels unusual dyspnea. He he was advised to come to the emergency room where he was found to have elevated but stable troponins and no EKG changes. He is admitted the hospital overnight on heparin and remained asymptomatic. This afternoon he underwent stress echo testing. At about 6-1/2 minutes he developed chest pain. Preliminary report from the echocardiogram is positive for ischemic changes. I discussed plan of care with the patient. He is requesting invasive evaluation and treatment with coronary angiogram. I spoke with Cardiology at [facility] and he is accepted there for ongoing cardiac care.
[2023-11-19] MEDS: HEPARIN 25,000 UNIT/500 ML BAG 19 UNIT IV ×2 (17:13→21:26)
--- NOTE | 2023-11-19 18:36 | PC.NURSE ---
contacted [facility] access via phone. Verified with access center a 4-8 hour wait on pt transfer to [facility].
[2023-11-19 19:00] VITALS: BP 134/87; PULSE 68; RESP 18; TEMP 36.1; O2SAT 97
[2023-11-19] MEDS: ATORVASTATIN 10 MG TABLET 20 MG PO (21:33)
== END 2023-11-19 22:49 | disposition short-term general hospital (02) | DRG 282 ==
LOC: ED 15:55 → MEDSURG 16:28
PROVIDERS: Admitting Provider Family Medicine; Emergency Provider Student in an Organized Health Care Education/Training Program; PCP Family Medicine; Visit Provider Family Medicine
DX: I21.4 Non-ST elevation (NSTEMI) myocardial infarction (principal); I20.9 Angina pectoris, unspecified; I10 Essential (primary) hypertension; E78.5 Hyperlipidemia, unspecified
CPT/HCPCS: 36415; 71046; 80048; 83735; 84484; 85025; 85027; 85379; 85610; 85730; 87631; 93005; 93016; 93325; 93351; 99284; 99285; 99291; A9270; J1644; J7120

== ENCOUNTER 2023-11-19 22:38 | Outpatient (CLI) | payer MEDICARE, SELFPAY ==
--- OUTSIDE RECORDS SUMMARY | 2023-11-23 09:32 | XMS_ITS | Clinical Summary ---
Author Organization [employer] Address [address], [place] [address] Care Team Providers Care Lightning Protection Installer Name Role Phone Delvis Altamirano MD Primary Care Provider Source Comments You are receiving this document as you are listed as the primary care provider,follow-up provider, or the patient has been referred to you for consultation.This is in compliance with the Medicare and[facility] EHR Incentive Program,which states Providers who transition their patient to another setting of careor provider of care or refers their patient to another provider of care shouldprovide summary care record for each transition of care or referral. [employer] Allergies No known active allergies Medications Medication Sig Dispensed Refills Start Date End Date Status lisinopril (ZESTRIL) 10 MG tablet Take 1 Tablet (10 mg) by mouth daily. Active Aspirin Buf,[id number] O, 81 MG TABS Take by mouth. [...] Comments Blood Pressure 160/93 05/24/2020 2:26 PM DELIMER Pulse 63 05/24/2020 2:26 PM DELIMER Temperature 36.4 ??C (97.5 ??F) 05/24/2020 2:26 PM CS T Respiratory Rate - - Oxygen Saturation - - Inhaled Oxygen Concentration - - Weight 89.4 kg (197 lb) 05/24/2020 2:26 PM DELIMER Height - - Body Mass Index - - Plan of Treatment Upcoming Encounters Date Type Department Care Team (Late st Contact Info) Description 12/17/2023 8:20 AM CDT Appointment [place] [id number] [address] [place] [address] [phone] Ligia Bhakta MD [address] [place] [id number] Health Maintenance Due Date Last Done [...] age to complete this topic Care Teams Lightning Protection Installer Relationship Specialty Start Date End Date Delvis Altamirano MD [facility] [address] [place] [address] PCP - General Family Practice 05/18/20
== END 2023-11-19 22:39 | disposition home or self-care (01) ==
LOC: AMB 11-23 09:30
PROVIDERS: PCP Family Medicine; Visit Provider Family Medicine
DX: I21.4 Non-ST elevation (NSTEMI) myocardial infarction (principal)
CPT/HCPCS: A0425; A0434

== ENCOUNTER 2024-03-13 10:46 | Outpatient (CLI) | payer MEDICARE, SELFPAY | END 2024-03-13 10:47 | disposition home or self-care (01) | PROVIDERS: PCP Family Medicine; Visit Provider Family Medicine | DX: R53.83 Other fatigue (principal); M79.10 Myalgia, unspecified site | CPT/HCPCS: 80076; 82550; 84439; 84443 ==

== ENCOUNTER 2024-06-24 10:27 | Outpatient (CLI) | payer MEDICARE, SELFPAY | END 2024-06-24 10:28 | disposition home or self-care (01) | PROVIDERS: PCP Family Medicine; Visit Provider Family Medicine | DX: E03.9 Hypothyroidism, unspecified (principal) | CPT/HCPCS: 84439; 84443 ==

== ENCOUNTER 2024-08-28 11:50 | Outpatient (CLI) | payer MEDICARE, SELFPAY | END 2024-08-28 11:51 | disposition home or self-care (01) | PROVIDERS: PCP Family Medicine; Visit Provider Family Medicine | DX: E03.9 Hypothyroidism, unspecified (principal); R51.9 Headache, unspecified; R53.83 Other fatigue; Z12.5 Encounter for screening for malignant neoplasm of prostate | CPT/HCPCS: 80053; 84439; 84443; 86140; G0103 ==

== ENCOUNTER 2024-09-15 08:50 | Outpatient (CLI) | payer MEDICARE, SELFPAY ==
--- NOTE | 2024-09-15 09:15 | CRLHL7_ITS ---
For Patients: As a result of the Century Cures Act, medical imaging exams and procedure reports are released immediately into your electronic medical record. You may view this report before your referring provider. If you have questions, please contact your health care provider. INDICATION: Headaches. COMPARISON: None. TECHNIQUE: Multiplanar T1, T2, FLAIR and diffusion-weighted imaging.. Post gadolinium T1 weighted sequences. Gadolinium 20 cc IV FINDINGS: Mild generalized volume loss. Scattered foci of T2/FLAIR signal hyperintensity within the white matter of both cerebral hemispheres consistent with chronic deep white matter small vessel ischemic changes or sequela migraine headache. No intracranial hemorrhage. No abnormal ventricular dilatation. Intracranial vascular flow voids are preserved. No mass effect. No midline shift. No restricted diffusion to suggest acute ischemia. Tiny focus of susceptibility artifact within the white matter left parietal lobe may be secondary to chronic microhemorrhage or mineral deposition. No abnormal enhancement or enhancing lesions. Bilateral orbits are unremarkable. Normal appearing sella. Visualized paranasal sinuses and mastoid air cells are unremarkable. IMPRESSION: 1. No acute intracranial abnormality. 2. Mild generalized cerebral volume loss. Scattered foci of T2/FLAIR signal hyperintensity within the white matter of both cerebral hemispheres consistent with chronic deep white matter small vessel ischemic changes or sequela of migraine headache 3. No abnormal enhancement or enhancing lesions. Dictated by Job Rivera MD @ 09/15/2024 2:30:12 PM (Electronically Signed)
== END 2024-09-15 08:51 | disposition home or self-care (01) ==
LOC: MRI 08:51
PROVIDERS: PCP Family Medicine; Visit Provider Family Medicine
DX: R51.9 Headache, unspecified (principal); G89.29 Other chronic pain; Z80.8 Family history of malignant neoplasm of other organs or systems
CPT/HCPCS: 70553; A9575

== ENCOUNTER 2025-01-27 15:35 | Outpatient (CLI) | payer MEDICARE, SELFPAY | END 2025-01-27 15:36 | disposition home or self-care (01) | PROVIDERS: PCP Family Medicine; Visit Provider Family Medicine | DX: E03.9 Hypothyroidism, unspecified (principal) | CPT/HCPCS: 84439; 84443 ==

== ENCOUNTER 2025-03-31 08:31 | Outpatient (CLI) | payer MEDICARE, SELFPAY | END 2025-03-31 08:32 | disposition home or self-care (01) | LOC: NFLDREF 04-05 08:12 | PROVIDERS: PCP Family Medicine; Referring Provider Family Medicine; Visit Provider Family Medicine | DX: E03.9 Hypothyroidism, unspecified (principal); E78.00 Pure hypercholesterolemia, unspecified | CPT/HCPCS: 80061; 84439; 84443 ==